=== PATIENT | male | born 1980 | race African-American/Black ===

== ENCOUNTER 2020-02-25 14:14 | Inpatient (IN) | payer SELFPAY ==
[~2020-02-25] VITALS: Ht 175.3 cm; Wt 64.4 kg
[2020-02-25 15:02] LABS: BASOPHILS % (AUTO) 0.3 % (0.0-2.0); EOSINOPHILS % (AUTO) 0.3 % (1.0-6.0); HEMATOCRIT 37.4 % (41-53); HEMOGLOBIN 12.1 g/dL (13.5-17.5); LYMPHOCYTES # (AUTO) 1.1 K/uL (1.0-4.8); LYMPHOCYTES % (AUTO) 8.4 % (22.0-44.0); MEAN CORPUSCULAR HEMOGLOBIN 26.6 pg (26.0-34.0); MEAN CORPUSCULAR HGB CONC 32.4 G/dL (31.0-37.0); MEAN CORPUSCULAR VOLUME 82 fL (80-100); MONOCYTES # (AUTO) 0.7 K/uL (0.1-1.0); MONOCYTES % (AUTO) 5.4 % (2.0-9.0); PLATELET COUNT (AUTO) 312 K/uL (150-450); RED BLOOD CELL COUNT(AUTO) 4.55 MIL/uL (4.50-5.90); RED CELL DISTRIBUTION WIDTH 14.2 % (11.5-14.5)
[2020-02-25 15:06] LABS: NEUTROPHILS % (AUTO) 85.6 % (40.0-70.0)
[2020-02-25 15:17] LABS: ANION GAP 14 mmol/L (8-16); CALCIUM, TOTAL 9.3 mg/dL (8.8-10.5); CARBON DIOXIDE 22 mmol/L (22-29); CHLORIDE 106 mmol/L (98-107); CREATININE 1.11 mg/dL (0.60-1.30); GLOMERULAR FILTR. RATE CALC > 60 mL/min (>60); GLUCOSE,RANDOM 134 mg/dL (70-110); POTASSIUM 3.5 mmol/L (3.5-5.1); SODIUM SERUM 142 mmol/L (136-145); UREA NITROGEN, BLOOD 17 mg/dL (7-18)
[2020-02-25 15:22] LABS: ALANINE AMINOTRANSFERASE 21 U/L (12-78); ALKALINE PHOSPHATASE 66 U/L (46-116); ASPARTATE AMINOTRANSFERASE 18 U/L (15-37); BILIRUBIN,TOTAL 0.2 mg/dL (0.1-1.0); TOTAL PROTEIN, SERUM 6.9 g/dL (6.4-8.2)
[2020-02-25] MEDS ORDERED: LORazepam 2 MG TABLET PO ONE (15:30)
[2020-02-25] MEDS ORDERED: HALOPERIDOL 5 MG TABLET PO PRN (16:45)
[2020-02-25] MEDS ORDERED: ZOLPIDEM TARTRATE 10 MG TABLET PO PRN (16:45)
[2020-02-25] MEDS ORDERED: LORazepam 2 MG TABLET PO PRN (16:45)
[2020-02-25 16:56] LABS: CREATINE KINASE, TOTAL ONLY 261 U/L (39-308)
[2020-02-25 17:09] LABS: AMPHET/METH SCREEN,URINE POSITIVE (NEGATIVE); APPEARANCE,URINE CLEAR (CLEAR); BARBITURATE SCREEN, URINE NEGATIVE (NEGATIVE); BENZODIAZEPINES SCREEN,URINE POSITIVE (NEGATIVE); BILIRUBIN,URINE NEGATIVE (NEGATIVE); CANNABINOID SCREEN,URINE POSITIVE (NEGATIVE); COCAINE SCREEN,URINE NEGATIVE (NEGATIVE); GLUCOSE, URINE (UA) NEGATIVE (NEGATIVE); KETONES,URINE NEGATIVE (NEGATIVE); LEUKOCYTE ESTERASE ,URINE NEGATIVE (NEGATIVE); METHADONE SCREEN, URINE NEGATIVE (NEGATIVE); NITRATE,URINE NEGATIVE (NEGATIVE); OCCULT BLOOD,URINE NEGATIVE (NEGATIVE); OPIATE SCREEN,URINE NEGATIVE (NEGATIVE); PH,URINE 6.5 (5.0-8.0); PROTEIN,URINE POS 1+ (NEGATIVE)
[2020-02-25 17:18] LABS: PHENCYCLIDINE SCREEN,URINE NEGATIVE (NEGATIVE)
[2020-02-25 17:30] LABS: BACTERIA,URINE None Seen /HPF (None Seen); WBC,URINE None Seen /HPF (0-5)
[2020-02-25 17:31] LABS: RBC,URINE 0-2 /HPF (0-2)
[2020-02-25] MEDS ORDERED: ACETAMINOPHEN 325 MG TABLET PO PRN (21:45)
[2020-02-25] MEDS ORDERED: NICOTINE 14 MG/24 HOUR PATCH TD PRN (21:45)
[2020-02-25] MEDS ORDERED: ALBUTEROL SULFATE HFA 90 MCG/PUFF 8 GM INHALER IH PRN (21:45)
[2020-02-25] MEDS ORDERED: DOCUSATE SODIUM 100 MG CAPSULE PO PRN (21:45)
[2020-02-25] MEDS ORDERED: LOPERAMIDE HCL 2 MG CAPSULE PO PRN (21:45)
[2020-02-25] MEDS ORDERED: GuaiFENesin/D-METHORPHAN [SUGAR-FREE] 200-20MG/10 ML SYRUP UDCUP PO PRN (21:45)
[2020-02-25] MEDS ORDERED: IBUPROFEN 400 MG TABLET PO PRN (21:45)
[2020-02-25] MEDS ORDERED: PETROLATUM,WHITE 28 GM JELLY TP PRN (21:45)
[2020-02-25] MEDS ORDERED: MAGNESIUM HYDROXIDE SUSPENSION 30 ML UDCUP PO PRN (21:45)
[2020-02-25] MEDS ORDERED: MAG HYDROX/AL HYDROX/SIMETH ES 30 ML SUSPENSION UDCUP PO PRN (21:45)
[2020-02-25] MEDS ORDERED: CloNIDine HCL 0.1 MG TABLET PO PRN (21:45)
[2020-02-25] MEDS ORDERED: ONDANSETRON HCL 4 MG TABLET PO PRN (21:45)
[2020-02-26 06:26] VITALS: BP 116/64
[2020-02-26] MEDS: BACITRACIN 28.4 GM OINTMENT TP SCH ×2 (08:37→16:33)
[2020-02-26 08:48] VITALS: BP 115/62
[2020-02-26 16:00] VITALS: BP 127/64
[2020-02-26] MEDS: OLANZapine 5 MG TABLET PO SCH (16:33)
[2020-02-27 02:52] VITALS: BP 122/69
[2020-02-27 07:22] LABS: CHOL/HDL RATIO 2.6 (4.2-7.3)
[2020-02-27 08:00] VITALS: BP 118/65
[2020-02-27] MEDS: OLANZapine 5 MG TABLET PO SCH ×2 (08:55→16:55)
[2020-02-27] MEDS: BACITRACIN 28.4 GM OINTMENT TP SCH ×2 (09:00→16:55)
[2020-02-27 16:13] VITALS: BP 116/69
[2020-02-28 05:41] VITALS: BP 124/74
[2020-02-28] MEDS: BACITRACIN 28.4 GM OINTMENT TP SCH (09:00)
[2020-02-28] MEDS: OLANZapine 5 MG TABLET PO SCH (09:14)
[2020-02-28] MEDS ORDERED: OLAN5TAB2 PO (09:36)
[2020-02-28] MEDS ORDERED: BACI30OI10 TP (09:39)
== END 2020-02-28 13:10 | disposition home or self-care (01) | DRG 885 ==
LOC: EMS 14:18 → B3A 18:13
PROVIDERS: ADMIT Psychiatry & Neurology Psychiatry; ATTEND Psychiatry & Neurology Psychiatry
DX: F25.9 Schizoaffective disorder, unspecified (principal); F10.10 Alcohol abuse, uncomplicated; D64.9 Anemia, unspecified; D72.829 Elevated white blood cell count, unspecified; F19.10 Other psychoactive substance abuse, uncomplicated
CPT/HCPCS: G0480